=== PATIENT | male | born 1945 | race Caucasian/White ===

== ENCOUNTER 2018-01-25 07:15 | Emergency (ER) | payer OTHER, SELFPAY ==
[2018-01-25 07:16] VITALS: BP 142/76; PULSE 90; RESP 14; TEMP 37; O2SAT 97; BMI 22.7
--- NOTE | 2018-01-25 07:30 | VDLE_ITS ---
Reason For Study: LEG PAIN RIGHT LEFT GSV is normal. GSV is normal. CFV is compressible, spontaneous, phasic, CFV is compressible, spontaneous, phasic, competent and demonstrates normal competent, and demonstrates normal augmentation. augmentation. FV is compressible, spontaneous, phasic, FV is compressible, spontaneous, phasic, competent and demonstrates normal competent and demonstrates normal augmentation. augmentation. POP V is compressible, spontaneous, phasic, POP V is compressible, spontaneous, phasic, competent and demonstrates normal competent and demonstrates normal augmentation. augmentation. T/P Trunk is compressible. T/P Trunk is compressible. PTV is compressible. PTV is compressible. RT PerV is compressible. LT PerV is compressible. Procedure Structure with mixed echoes noted lt medial Exam performed portable in ED. pop space measuring 2.6 x 2.6 x 5.2 cm. Non- A preliminary report was called and/or faxed vascular. to Dr. Arellano. Interpretation Summary No evidence for acute deep venous thrombosis bilateral lower extremities with patent and compressible bilateral great saphenous veins. Complex loculated/cystic left popliteal structure measuring 2.6 x2.6 x 5.2cm Ordering Physician: Francisco Arellano Referring Physician: José Luis Melchor MD Performed By: Emilia Fitzgerald RVT
[2018-01-25] MEDS: Orphenadrine 60 MG/2 ML Ampul IM (07:37)
[2018-01-25] MEDS: Ketorolac 30 MG/ML Syringe IM (07:39)
[2018-01-25] MEDS: morphine 8 MG/ML Syringe SC (08:23)
--- NOTE | 2018-01-25 08:47 | ED.VISSUMM ---
- ER Visit Summary Date of Service: 01/25/18 Chief Complaint: Right leg pain History of Present Illness: The patient is a 72 M presenting for evaluation secondary to right leg pain. Patient states that on he had a stem cell procedure where bone marrow was taken from his pelvis and then injected into his lower back and his knees. This was performed in [place]. Patient had a 20 [address] ride home then, and states that he has had approximately 5 days of right leg pain. He states that it started in his right calf and now was progressed up his right leg to his thigh and his hip. He does not seem to radiate from his back. No weakness, no bowel or bladder incontinence, no fevers. Patient is having some difficulty with ambulating. He has been getting physical therapy on this. Pain was bad enough today to the point where he was having some difficulty with ambulation so he came into the emergency department. Denies any chest pain or hemoptysis. Physical Examination: Vital signs within normal limits. Well-nourished male no acute distress lying prone in the bed however. Head normocephalic. Neck supple. Heart regular rate and rhythm lungs clear. Abdomen soft nontender no evidence of pulsatile abdominal masses. Back was nontender with some bruising over the patient's posterior pelvis consistent with his bone marrow aspirates. Strong pulses of the upper and lower extremities bilaterally. Skin was normal color. Patient alert and oriented normal strength sensation. Normal hip flexion knee extension dorsiflexion plantar flexion and EHL. No paresthesia normal reflexes. Test Results: Duplex ultrasound of the bilateral lower extremities is negative. Hip and pelvis x-rays are negative. CBC unremarkable, ESR is normal for the patient's age, CRP was 9 Emergency Department Course and Treatment: Patient presented secondary to leg pain. This does not really seem to emanate from the patient's back, does not really seem like a radicular pathology but there was some concern for the possibility of DVT. Duplex ultrasound was negative. Patient was evaluated for the possibility of infection status post procedure that was negative. Patient's knees were what he had injected and those have no pain with short arc range of motion, he also had an injection in his back and he really does not have any back pain it seems more muscular in this and the sense of stiffness and difficulty with moving. He was given Toradol and Norflex and morphine and ultimately was able to ambulate in the emergency department at 11 AM. This point I believe the patient can safely be discharged. He will be discharged with a course of analgesia as well as muscle relaxants and continued physical therapy. Disposition: Discharge Impression: 1. Right leg muscle spasm This note was generated with [employer]iga[employer] dictation software. It may contain incorrect words, spelling, and punctuation that were not noted in review of the chart prior to signing ED Disposition - Plan for ED Patient: Disposition: Home or Assisted Living Chief Complaint: Back Diagnosis: Muscle spasm Instructions: ED Spasm Muscle Prescriptions: Hydrocodone Bitart/Apap 5-325 [[place] 5/325] 1 tab PO Q6H PRN PRN 3 Days #12 tab PRN Reason: Pain Naproxen [Naprosyn] 500 mg PO BID PRN #20 tab Cyclobenzaprine [Flexeril] 10 mg PO TID PRN #20 tab PRN Reason: Muscle Spasm Referrals: Austin Melchor III, MD [Primary Care Provider] - 3-5 Days
--- NOTE | 2018-01-25 08:51 | ED.DCSUM_ITS ---
- ER Visit Summary Date of Service: 01/25/18 Chief Complaint: Right leg pain History of Present Illness: The patient is a 72 M presenting for evaluation secondary to right leg pain. Patient states that on he had a stem cell procedure where bone marrow was taken from his pelvis and then injected into his lower back and his knees. This was performed in [place]. Patient had a 20 hour bus ride home then, and states that he has had approximately 5 days of right leg pain. He states that it started in his right calf and now was progressed up his right leg to his thigh and his hip. He does not seem to radiate from his back. No weakness, no bowel or bladder incontinence, no fevers. Patient is having some difficulty with ambulating. He has been getting physical therapy on this. Pain was bad enough today to the point where he was having some difficulty with ambulation so he came into the emergency department. Denies any chest pain or hemoptysis. Physical Examination: Vital signs within normal limits. Well-nourished male no acute distress lying prone in the bed however. Head normocephalic. Neck supple. Heart regular rate and rhythm lungs clear. Abdomen soft nontender no evidence of pulsatile abdominal masses. Back was nontender with some bruising over the patient's posterior pelvis consistent with his bone marrow aspirates. Strong pulses of the upper and lower extremities bilaterally. Skin was normal color. Patient alert and oriented normal strength sensation. Normal hip flexion knee extension dorsiflexion plantar flexion and EHL. No paresthesia normal reflexes. Test Results: Duplex ultrasound of the bilateral lower extremities is negative. Hip and pelvis x-rays are negative. CBC unremarkable, ESR is normal for the patient's age, CRP was 9 Emergency Department Course and Treatment: Patient presented secondary to leg pain. This does not really seem to emanate from the patient's back, does not really seem like a radicular pathology but there was some concern for the possibility of DVT. Duplex ultrasound was negative. Patient was evaluated for the possibility of infection status post procedure that was negative. Patient' s knees were what he had injected and those have no pain with short arc range of motion, he also had an injection in his back and he really does not have any back pain it seems more muscular in this and the sense of stiffness and difficulty with moving. He was given Toradol and Norflex and morphine and ultimately was able to ambulate in the emergency department at 11 AM. This point I believe the patient can safely be discharged. He will be discharged with a course of analgesia as well as muscle relaxants and continued physical therapy. Disposition: Discharge Impression: 1. Right leg muscle spasm This note was generated with Suda dictation software. It may contain incorrect words, spelling, and punctuation that were not noted in review of the chart prior to signing ED Disposition - Plan for ED Patient: Disposition: Home or Assisted Living Chief Complaint: Back Diagnosis: Muscle spasm Instructions: ED Spasm Muscle Prescriptions: Hydrocodone Bitart/Apap 5-325 [[place] 5/325] 1 tab PO Q6H PRN PRN 3 Days #12 tab PRN Reason: Pain Naproxen [Naprosyn] 500 mg PO BID PRN #20 tab Cyclobenzaprine [Flexeril] 10 mg PO TID PRN #20 tab PRN Reason: Muscle Spasm Referrals: Austin Melchor III, MD [Primary Care Provider] - 3-5 Days
[2018-01-25 09:13] LABS: Absolute Lymphocyte Count 1.09 X10^3/ul (0.83-4.51); Absolute Neutrophil Count 5.5 X10^3/uL (2.0-7.7); Basophil# 0.02 X10^3/uL; Basophil% 0.3 % (0-1); Eosinophils% 1.4 % (0-5); Hematocrit 38.9 % (40-54); Hemoglobin 12.6 g/dl (13.0-16.5); Lymphocyte # 1.09 X10^3/ul (4.0); Lymphocyte % 15.1 % (19-41); Mean Corp Hgb Conc 32.4 g/gl (32-36); Mean Corpuscular Hgb 30.1 pg (27.0-32.0); Mean Corpuscular Volume 92.8 fL (80-94); Mean Platelet Vol. 10.3 fl (6.2-12.0); Monocyte% 6.9 % (0-10); Neutrophil # 5.53 X10^3/uL (2.7-7.7); Neutrophil % 76.3 % (47-70); Platelet Count 233 K/mm3 (150-450); RBC Distribution Width CV 13.2 % (11.6-14.6); RBC Distribution Width SD 44.7 fl (35.1-43.9); Red Blood Count 4.19 M/mm3 (4.6-6.2); White Blood Count 7.2 K/mm3 (4.4-11.0)
[2018-01-25 09:15] LABS: POSITIVE COUNT NO; POSITIVE DIFFERENTIAL NO; POSITIVE MORPHOLOGY NO
[2018-01-25 09:23] LABS: Erythrocyte Sedimentation Rate 23 mm/hr (0-20)
[2018-01-25 09:27] LABS: CRP 9.11 mg/L (0.0-3.0)
--- NOTE | 2018-01-25 09:31 | RAD_ITS ---
STUDY: X-RAY - PELVIS AND RIGHT HIP REASON FOR EXAM: Male, 72 years old. Pelvic pain and right hip pain. TECHNIQUE: Radiological exam, hip, unilateral, with pelvis when performed; 2 or 3 views. COMPARISON: None. FINDINGS: Moderate amount of fecal material is seen in the colon. Normal visualized soft tissue structures. Normal bilateral iliac wings, sacroiliac joints and visualized sacrum. Normal bilateral superior and inferior pubic rami. Normal pubic symphysis. Normal bilateral ischial tuberosities. Normal visualized femoral head. Normal acetabulum. There is mild articular joint space narrowing of the hip. RAD/Hip 2-3 Views with Pelvis IMPRESSION: Mild degree of degenerative changes of the right hip joint. No fracture or dislocation is seen. Electronically Signed: Blake Flynn MD at 10:01 EDT Tel [phone], Service support ,
[2018-01-25 10:08] VITALS: BP 121/68; PULSE 63; O2SAT 97
[2018-01-25 11:11] VITALS: BP 139/57; PULSE 82; RESP 22; O2SAT 99
--- NOTE | 2018-01-25 11:11 | ED.RN ---
THIS NURSE REVIEWED D/C INSTRUCTIONS WITH PT AND . BOTH VERBALIZED UNDERSTANDING OF INSTRUCTIONS. IV D/C. IV CATHETER INTACT. PT TOLERATED WELL. PT DENIES FURTHER NEEDS OR QUESTIONS AT THIS TIME
== END 2018-01-25 11:30 | disposition home or self-care (01) ==
PROVIDERS: Emergency Provider Emergency Medicine; Family Provider Family Medicine; PCP Family Medicine
DX: M62.838 Other muscle spasm (principal); M79.604 Pain in right leg; G20 Parkinson's disease; M19.90 Unspecified osteoarthritis, unspecified site; Z79.82 Long term (current) use of aspirin
CPT/HCPCS: 73502; 85025; 85652; 86140; 93970; 96372; 99285; A4216

== ENCOUNTER → 2019-10-05 11:57 | Outpatient (CLI) | payer OTHER, SELFPAY ==
--- NOTE | 2019-10-05 12:30 | RAD_ITS ---
STUDY: X-RAY CHEST REASON FOR EXAM: Male, 74 years old. Preoperative. TECHNIQUE: PA and lateral views of the chest. COMPARISON: None. FINDINGS: Bilateral calcified granulomas noted, largest averaging approximately 6 mm. Remainder of the lungs are clear and expanded. There is no demonstrated pleural abnormality. Normal size heart. Normal mediastinum and munir. Normal visualized pulmonary arteries. There is atherosclerotic calcification of the aortic arch with tortuosity. There are diffuse degenerative changes of the visualized thoracic spine. There is degenerative osteoarthritis of the bilateral shoulders. There is no demonstrated abnormality of the visualized soft tissue structures of the upper abdomen. RAD/Chest PA and Lateral IMPRESSION: No acute cardiopulmonary disease. Electronically Signed: Keisha José MD at 2:19 EST , Service support ,
== END ==
PROVIDERS: Family Provider Family Medicine; PCP Family Medicine; Referring Provider Orthopaedic Surgery; Visit Provider Orthopaedic Surgery
DX: Z01.810 Encounter for preprocedural cardiovascular examination (principal); Z01.811 Encounter for preprocedural respiratory examination
CPT/HCPCS: 71046; 93005

== ENCOUNTER → 2020-03-19 16:26 | Outpatient (CLI) | payer OTHER, SELFPAY ==
--- NOTE | 2020-03-19 16:33 | RAD_ITS ---
STUDY: X-RAY CHEST REASON FOR EXAM: Male, 75 years old. Having knee replacement no heart or lung issues TECHNIQUE: PA and lateral views of the chest. COMPARISON: October 05, 2019 FINDINGS: The lungs remain hyperinflated. There are stable bilateral granulomas. There is no new focal consolidation. Normal size heart. Normal mediastinum and munir. Normal visualized pulmonary arteries. Normal visualized aortic arch and descending thoracic aorta. There are diffuse degenerative changes of the visualized thoracic spine. Normal visualized ribs, clavicles, and shoulders. There is no demonstrated abnormality of the visualized soft tissue structures of the upper abdomen. RAD/Chest PA and Lateral IMPRESSION: Stable examination demonstrating no acute cardiopulmonary process. Electronically Signed: Kayla Saini MD at 17:41 EDT Tel , Service support ,
--- NOTE | 2020-03-19 16:34 | EKG12_ITS ---
Test Reason : PREOP Blood Pressure : / mmHG Vent. Rate : 070 BPM Atrial Rate : 070 BPM P-R Int : 166 ms QRS Dur : 106 ms QT Int : 388 ms P-R-T Axes : 063 -60 070 degrees QTc Int : 419 ms Normal sinus rhythm Left anterior fascicular block Abnormal ECG Confirmed by VINCENT GARVIN ([id number]), desk editor NORMA HONG ([id number]) on 03/24/2020 10:56:52 AM Referred By: Krish Hong Confirmed By:VINCENT GARVIN
== END ==
PROVIDERS: PCP Family Medicine; Referring Provider Orthopaedic Surgery; Visit Provider Orthopaedic Surgery
DX: Z01.811 Encounter for preprocedural respiratory examination (principal); Z01.810 Encounter for preprocedural cardiovascular examination
CPT/HCPCS: 71046; 93005

== ENCOUNTER 2024-11-21 14:48 | Emergency (ER) | payer OTHER, SELFPAY ==
[2024-11-21 14:49] VITALS: BP 135/85; PULSE 111; RESP 16; TEMP 37.7; O2SAT 95
[2024-11-21 15:52] VITALS: BP 126/76; PULSE 105; RESP 16; TEMP 37.1; O2SAT 95
[2024-11-21 16:53] LABS: Absolute Lymphocyte Count 0.67 X10^3/uL (0.83-4.51); Absolute Neutrophil Count 6.4 X10^3/uL (2.0-7.7); Basophil# 0.04 X10^3/uL; Basophil% 0.5 % (0-1); Eosinophil# 0.05 X10^3/uL; Eosinophils% 0.6 % (0-5); Hematocrit 43.8 % (40-54); Hemoglobin 14.9 g/dL (13.0-16.5); Lymphocyte # 0.67 X10^3/ul (0.83-4.51); Lymphocyte % 8.5 % (19-41); Mean Corpuscular Hgb 29.9 pg (27.0-32.0); Mean Platelet Vol. 10.4 fl (6.2-12.0); Monocyte# 0.68 X10^3/uL; Monocyte% 8.7 % (0-10); NRBC Flagged by Analyzer 0 % (0-5); Neutrophil # 6.37 X10^3/uL (2.7-7.7); Neutrophil % 81.2 % (47-70); Platelet Count 194 K/mm3 (150-450); RBC Distribution Width CV 13.5 % (11.6-14.6); RBC Distribution Width SD 43.9 fl (35.1-43.9); Red Blood Count 4.98 M/mm3 (4.6-6.2); White Blood Count 7.9 K/mm3 (4.4-11.0)
[2024-11-21 17:00] VITALS: BP 133/71; PULSE 95; RESP 20; TEMP 37; O2SAT 93; O2SAT 94
[2024-11-21 17:05] VITALS: BP 133/71; PULSE 98; RESP 24; TEMP 36.9; O2SAT 95
[2024-11-21 17:06] LABS: Prothrombin Time (Protime)PT. 13.6 SECONDS (11.7-14.9)
[2024-11-21 17:07] VITALS: BMI 23.3
[2024-11-21 17:07] LABS: Partial Thromboplast Time 26.2 Seconds (24.1-36.2)
--- NOTE | 2024-11-21 17:11 | RAD_ITS ---
PROCEDURE: CHEST PA AND LATERAL REASON FOR EXAM: Fever TECHNIQUE: Frontal and lateral views of the chest. COMPARISON: None. FINDINGS: The heart size is normal. Aortic arch calcifications. The mediastinal contour is unremarkable. The lungs are clear. The bones are unremarkable. RAD/Chest PA and Lateral IMPRESSION: No radiographic evidence of acute cardiopulmonary disease Reading Location: [facility]
[2024-11-21 17:28] LABS: Lactic Acid 0.7 mmol/L (0.4-1.9)
[2024-11-21] MEDS: 0.9% Normal Saline (1000mL) 1,000 ML 999 ML IV (17:28)
[2024-11-21 17:30] LABS: ALB/GLOB Ratio 0.8 RATIO (0.9-2.4); AST(SGOT) 19 U/L (15-37); Alanine Aminotransfer ALT/SGPT 20 U/L (16-61); Albumin, Serum 3.5 g/dL (3.2-5.0); Alkaline Phosphatase 51 U/L (45-117); Anion Gap 9 (5-15); BUN 11 mg/dL (7-18); Calcium,Total 8.7 mg/dL (8.5-10.1); Chloride 104 mmol/L (98-107); Creatinine, Serum 0.73 mg/dL (0.70-1.30); EST Glomerular Filtration Rate 109 mL/min (>60); Est Glom Filt Rate - Afr Amer 132 mL/min (>60); Estimated Creatinine Clearance 77.13 ml/min; Globulin 4.2 g/dL (2.2-4.2); Glucose 106 mg/dL (74-106); Potassium 3.8 mmol/L (3.5-5.1); Protein, Total 7.7 g/dL (6.4-8.2); Sodium Level 135 mmol/L (136-145)
--- NOTE | 2024-11-21 17:58 | EX.ED.DYSGE1 ---
HPI History of Present Illness Chief Complaint: Fever Informant: patient and spouse/S.O. Narrative Narrative: 79-year-old Amarjit male with a history of Parkinson's presenting to the emergency room with generalized weakness and cough. Patient states for the past 2 days he has had a cough. notes a temperature up to 101. He feels completely exhausted. He states it is very hard for him to even transfer from the wheelchair to the bed. notes his appetite has been good. He denies any vomiting or diarrhea. He notes dry mouth. He denies any rashes or headache. Mild rhinorrhea. He does note dysuria but states that has been ongoing for 9 months and he believes is related to his prostate. [facility] Medical History Parkinson's disease Home Medications ?Medication ?Instructions ?Recorded ?Last Taken ?Type Sinemet . 2 tab PO TID 07/29/16 Unknown History aspirin 81 mg chewable tablet 81 mg PO DAILY@0800 01/25/18 Unknown History cyclobenzaprine 10 mg tablet 10 mg PO TID PRN Muscle Spasm #20 01/25/18 Unknown Rx tabs hydrocodone-acetaminophen 5-325mg 1 tab PO Q6H PRN PRN Pain 3 days 01/25/18 Unknown Rx 5mg-325mg #12 tabs naproxen 500 mg tablet 500 mg PO BID PRN #20 tabs 01/25/18 Unknown Rx Allergy/AdvReac Type Severity Reaction Status Date / Time No Known Allergies Allergy Verified 01/25/18 07:18 Social History Smoking Status: Never smoker ROS ROS ED ROS Narrative Generalized fatigue and generalized weakness Constitutional Constitutional ED: Reports fever(s); Denies chills or weight loss Eyes Eyes: Denies change in vision or diplopia ENT ENT ED: Reports rhinorrhea; Denies ear pain or sore throat Cardiovascular Cardiovascular: Denies chest pain, orthopnea, palpitations or racing heartbeat Respiratory/Chest Respiratory/Chest: Reports cough; Denies dyspnea or orthopnea Gastrointestinal Gastrointestinal: Denies abdominal pain, diarrhea, nausea or vomiting Genitourinary Genitourinary ED: Denies dysuria, hematuria or urinary frequency Musculoskeletal Musculoskeletal: Denies arthralgias or myalgias Integumentary Denies abscess or rash Neurologic Neurologic: Denies headache(s) or weakness Psychiatric Psychiatric: Denies anxiety, depression, suicidal ideation or suicidal thoughts Endocrine Endocrinology: Denies polydipsia, polyphagia or polyuria Allergic/Immunologic Allergic/Immunologic ED: Denies mouth swelling, tongue swelling or urticaria EXAM Physical Exam Const Vital Signs: 11/21/24 14:49 11/21/24 15:52 11/21/24 17:00 Temperature 99.8 F H 98.8 F Temperature Source Oral Oral Pulse Rate 111 H 105 H 95 Respiratory Rate 16 16 20 H Respiratory Effort Respiratory Pattern Blood Pressure 135/85 H 126/76 H 133/71 H Blood Pressure Mean 101 92 91 Pulse Ox 95 95 94 Oxygen Delivery Method Room Air Room Air Room Air 11/21/24 17:00 11/21/24 17:05 11/21/24 17:05 Temperature 98.6 F 98.4 F Temperature Source Oral Oral Pulse Rate 95 98 Respiratory Rate 20 H 24 H Respiratory Effort Respiratory Pattern Blood Pressure 133/71 H 133/71 H Blood Pressure Mean 91 91 Pulse Ox 93 95 95 Oxygen Delivery Method Room Air Room Air Room Air 11/21/24 17:06 11/21/24 17:08 11/21/24 18:00 Temperature Temperature Source Pulse Rate 96 Respiratory Rate 20 H Respiratory Effort Normal Non-Labored Respiratory Pattern Normal Blood Pressure 152/90 H Blood Pressure Mean 110 Pulse Ox 96 Oxygen Delivery Method Room Air 11/21/24 18:00 11/21/24 19:00 Temperature Temperature Source Pulse Rate 98 Respiratory Rate 23 H 24 H Respiratory Effort Respiratory Pattern Blood Pressure 140/82 H 150/96 H Blood Pressure Mean 97 102 Pulse Ox 96 95 Oxygen Delivery Method Positive well nourished and well developed General Appearance ED: well developed and NAD HEENT Reports normocephalic, head/scalp atraumatic and moist mucous membranes Eyes PERRL and EOMs intact bilaterally Neck no lymphadenopathy, supple and no JVD Resp normal respiratory effort and clear to auscultation bilaterally Resp Narrative: Dry cough Cardio regular rate, regular rhythm and no murmurs Rate: tachycardic GI normal to inspection, nondistended, normoactive bowel sounds and non-tender Palpation: soft Back/Spine no CVA tenderness and normal ROM Extremity normal to inspection General Extremety ED: Negative for edema General Extremity: Negative for edema Neuro oriented x3 and CN's II-XII intact bilaterally Neuro Narrative: Tremor associated with Parkinson's as noted Sensorium / Orientation: alert Motor Exam: strength 5/5 throughout Psych mental status grossly normal Mood & Affect: Negative for depressed or tearful Skin no rashes or lesions noted and no wounds MDM MDM MDM Narrative Medical decision making narrative: Differential diagnosis includes but not limited to bronchitis UTI pneumonia viral syndrome dehydration JOSE ANGEL electrolyte abnormalities White count 7.9 hemoglobin 14.9. Sodium 135 creatinine 0.73 with a BUN of 11 CO2 of 22. Normal LFTs. Urinalysis shows no overt infection. He is influenza A positive. My independent interpretation of the chest x-ray is no acute process. Patient received a liter of IV fluids. Overall the patient's blood work and chest x-ray look good. I sat down with the patient and his and we discussed his safety given his weakness from the flu. They feel comfortable taking him home stating that they have family that can help. He has been eating and drinking well. We talked about return instructions and precautions. They note understanding History & Record Review Discussion w/independent historian: Patient and Family Lab Data Attestation: I reviewed the patient's lab results. Labs: Laboratory Results - last 24 hr 11/21/24 11/21/24 16:42 18:00 WBC 7.9 RBC 4.98 Hgb 14.9 Hct 43.8 MCV 88.0 MCH 29.9 MCHC 34.0 RDW Std Deviation 43.9 RDW Coeff of [place] 13.5 Plt Count 194 MPV 10.4 Immature Gran % (Auto) 0.500 Neut % (Auto) 81.2 H Lymph % (Auto) 8.5 L [place] % (Auto) 8.7 Eos % (Auto) 0.6 Baso % (Auto) 0.5 Absolute Neuts (auto) 6.4 Absolute Lymphs (auto) 0.67 L Nucleated RBC % 0 PT 13.6 INR 1.0 APTT 26.2 Sodium 135 L Potassium 3.8 Chloride 104 Carbon Dioxide 22.0 Anion Gap 9 BUN 11 Creatinine 0.73 Estim Creat Clear Calc 77.13 Est GFR (MDRD) Af Amer 132 Est GFR (MDRD) Non-Af 109 BUN/Creatinine Ratio 15.0 Glucose 106 Lactic Acid 0.7 Calcium 8.7 Total Bilirubin 0.90 AST 19 ALT 20 Alkaline Phosphatase 51 Total Protein 7.7 Albumin 3.5 Globulin 4.2 Albumin/Globulin Ratio 0.8 L Urine Color Yellow Urine Clarity Clear Urine pH 6.0 Ur Specific [place] 1.015 Urine Protein Negative Urine Glucose (UA) Normal Urine Ketones 5 H Urine Occult Blood Negative Urine Nitrite Negative Urine Bilirubin Negative Urine Urobilinogen Normal Ur Leukocyte Esterase 25 H Urine RBC 0 SEEN Urine WBC 0 SEEN Ur Squamous Epith Cells 0 SEEN Urine Bacteria RARE Urine Mucus 2+ Radiography Diagnostic Testing: Clinical Impression(s) from Imaging Studies Chest X-Ray 11/21/24 17:11 IMPRESSION: No radiographic evidence of acute cardiopulmonary disease Reading Location: [facility] Discharge Plan Triage Chief Complaint: Fever ED Provider: Ketan Basilio Dx/Rx/DC Orders Clinical Impression: Influenza A, Parkinson disease Prescriptions: No Action Sinemet . 2 tab PO TID Patient Comments: DOES NOT REMEMBER DOSE aspirin 81 MG tablet,chewable 81 mg PO DAILY@0800 cyclobenzaprine 10 MG tablet 10 mg PO TID PRN (Reason: Muscle Spasm) Qty: 20 0RF hydrocodone-acetaminophen 1 TABLET tablet 1 tab PO Q6H PRN PRN (Reason: Pain) 3 Days Qty: 12 0RF naproxen 500 MG tablet 500 mg PO BID PRN Qty: 20 0RF Primary Care Provider: Omar Piper Referrals: Omar Piper MD [Primary Care Provider] - Activity Restrictions/Additional Instructions: Please drink plenty of fluids to stay hydrated monitoring the color of your urine. Tylenol and/or Motrin to reduce fever Monitor your cough and your breathing. If you have any concerns or feel you are worsening please return to emergency Print Language: Ukrainian Disposition Disposition: Home, Self Care
[2024-11-21 18:00] VITALS: BP 140/82; BP 152/90; PULSE 96; RESP 20; RESP 23; O2SAT 96
[2024-11-21 18:13] LABS: Red Blood Cells-Urine 0 SEEN /hpf (0-5); Squamous Epithelial Cells - UA 0 SEEN /hpf (0-5); White Blood Cells 0 SEEN /hpf (0-5)
[2024-11-21 18:17] LABS: Color, Urine Yellow (Yellow); Glucose, Dipstick Normal (Normal); Ketone-Dipstick 5 mg/dl (Negative); Leukocyte Esterase-Dipstick 25 /ul (Negative); Nitrite-Dipstick Negative (Negative); Occult Blood-Urine Negative /ul (Negative); Protein-Dipstick Negative (Negative); Specific Gravity, Urine 1.015 (1.002-1.030); Urine Bilirubin Dipstick Negative (Negative); Urine Clarity Clear (Clear); Urine Urobilinogen Normal (Normal)
[2024-11-21 18:52] LABS: Mucous, Urine 2+ /hpf (<or=2+)
[2024-11-21 18:53] LABS: Bacteria RARE /hpf (None Seen)
[2024-11-21 19:00] VITALS: BP 150/96; PULSE 98; RESP 24; O2SAT 95
== END 2024-11-21 19:44 | disposition home or self-care (01) ==
PROVIDERS: Emergency Provider Emergency Medicine; PCP Family Medicine; Visit Provider Emergency Medicine
DX: J10.1 Influenza due to other identified influenza virus with other respiratory manifestations (principal); G20.A1 Parkinson's disease without dyskinesia, without mention of fluctuations; R50.9 Fever, unspecified; Z79.899 Other long term (current) drug therapy
CPT/HCPCS: 71046; 80053; 81001; 83605; 85025; 85610; 85730; 87040; 87086; 87088; 87631; 96360; 99284; A4216